=== PATIENT | female | born 1985 | race Caucasian/White ===

== ENCOUNTER 2019-07-19 10:52 | Emergency (ER) | payer OTHER ==
[~2019-07-19] VITALS: Ht 160 cm; Wt 86.2 kg
[~2019-07-19 10:52] MED LIST: CYCL10TA2 PO; DULO60CA45 PO; HYDR-2765 PO; NAPR-683 PO; RANI150T2 PO; pro air
[2019-07-19 11:00] VITALS: BP 142/65
--- NOTE | 2019-07-19 11:16 | PHYS DOC ---
Past Medical History Attending Signature I have participated in the care of this patient and I have reviewed and agree with all pertinent clinical information above including history, exam, and recommendations. (BRYSON PATEL MD) Adult General Chief Complaint Chief Complaint: BACK PAIN - NO INJURY HPI HPI Patient is a 33 year old female who presents to the ED today complaining of c hronic 6 out of 10 left low back pain radiating to the left lower extremity. Patient states she ran out of her hydrocodone. She states she used to get 240 tablets of hydrocodone per month but her PCP cut her down to 120 tablets this month and now she is out. She states her PCP requested her to follow-up with the pain clinic and has an appointment in 1 month. She states she has an MRI of her lumbar spine scheduled for tomorrow. She is requesting a refill of hydrocodone. Denies any injury. Denies any loss of bowel/bladder function. (DAWNA AVINA APRN) Review of Systems Review of Systems Constitutional: Denies fever or chills [] GI: Denies abdominal pain, nausea, vomiting, bloody stools or diarrhea [] : Denies dysuria or hematuria [] Musculoskeletal: Reports left low back pain Integument: Denies rash or skin lesions [] Neurologic: Denies headache, focal weakness or sensory changes [] All other systems were reviewed and found to be within normal limits, except as documented in this note. (DAWNA AVINA APRN) Current Medications Current Medications Current Medications Medications (Trade) Dose Ordered Sig/Marizol Start Time Stop Time Status Last Admin Dose Admin Acetaminophen/ Hydrocodone Bitart (Lortab 5/325) 2 tab 1X ONCE 07/19/19 11:30 07/19/19 11:25 DC 07/19/19 11:22 2 TAB (BRYSON PATEL MD) Allergies Allergies Allergies Coded Allergies Type Severity Reaction Last Updated Verified Penicillins Allergy Intermediate hives,rash 02/05/14 No (BRYSON PATEL MD) Physical Exam Physical Exam Constitutional: Well developed, well nourished, no acute distress, non-toxic appearance. [] Abdomen: Bowel sounds normal, soft, no tenderness, no masses, no pulsatile masses. [] Skin: Warm, dry, no erythema, no rash. [] Back: Diffuse paraspinal muscle tenderness to the left lumbar spine, no midline lumbar spine tenderness, no CVA tenderness. [] Extremities: No tenderness, no cyanosis, no clubbing, ROM intact, no edema. [] Neurologic: Alert and oriented X 3, normal motor function, normal sensory function, no focal deficits noted. [] Psychologic: Affect normal, judgement normal, mood normal. [] (DAWNA AVINA APRN) Current Patient Data Vital Signs Vital Signs Date Time Temp Pulse Resp B/P (MAP) Pulse Ox O2 Delivery O2 Flow Rate FiO2 07/19/19 11:22 14 99 Room Air 07/19/19 11:00 97.8 93 142/65 (90) 97.8 (BRYSON PATEL MD) EKG EKG [] (DAWNA AVINA APRN) Radiology/Procedures Radiology/Procedures [] (DAWNA AVINA APRN) Course & Med Decision Making Course & Med Decision Making Pertinent Labs and Imaging studies reviewed. (See chart for details) This is a 33-year-old female patient with history of chronic back pain presenting to the ED today with complaints of chronic back pain and running out of her hydrocodone. She is requesting a refill of hydrocodone. See history of present illness. K tracs shows patient received 120 tablets of hydrocodone on July 01 [address] Lott as a 1 month supply. Patient insisting of getting refill of [place]/short supply. Informed her, her PCP seem to want to decrease her narcotic dependence and could be the reason he is cutting her Hydrocodone done hence i will not refill her [place] today plus we have a narcotic/drug epidemic we working with the government to fight the epidemic. I offered her a dose in the ed and discharged her to home with instructions to follow up with her PCP and pain clinic as soon as possible. (DAWNA AVINA APRN) Dragon Disclaimer Dragon Disclaimer This electronic medical record was generated, in whole or in part, using a voice recognition dictation system. (DAWNA AVINA APRN) Departure Departure Impression: Primary Impression: Chronic low back pain Additional Impression: Narcotic dependence Disposition: HOME, SELF-CARE Condition: STABLE Referrals: MARY LOTT MD (PCP) follow up as soon as possible NUPUR VILLEGAS MD follow up as soon as possible Patient Instructions: Back Pain, Adult, [id number] Additional Instructions: You were evaluated in the emergency room for chronic low back pain. Please follow-up with the pain clinic as well as a primary care doctor. Problem Qualifiers Primary Impression: Chronic low back pain Back pain laterality: left Sciatica presence: with sciatica Sciatica laterality: sciatica of left side Qualified Codes: M54.42 - Lumbago with sciatica, left side; G89.29 - Other chronic pain DAWNA AVINA APRN Jul 19, 2019 11:15 BRYSON PATEL MD Jul 19, 2019 17:16
[2019-07-19] MEDS ORDERED: HYDROcodone/APAP 5/325MG 1 TAB TABLET PO ONE (11:30)
== END 2019-07-19 11:20 | disposition home or self-care (01) ==
LOC: ER 10:52
DX: M54.42 Lumbago with sciatica, left side (principal); G89.29 Other chronic pain; F11.20 Opioid dependence, uncomplicated; Z88.0 Allergy status to penicillin
CPT/HCPCS: 99282

== ENCOUNTER → 2019-07-20 | Outpatient (CLI) | payer OTHER ==
[2019-07-19 11:00] VITALS: BP 142/65
--- NOTE | 2019-07-20 10:51 | RAD ---
MRI Lumbar Spine without contrast History: Spinal stenosis Technique: Multiplanar, multi sequential noncontrast MR imaging was performed of the lumbar spine. Comparison: December 09, 2014 Findings: Lumbar vertebral body stature is maintained. There is again mild to moderate L5-S1 degenerative disc disease, to lesser degree at L4-5. There is posterior annular tear L4-5. There is increased L5-S1 endplate edema likely reactive/degenerative in etiology. AP alignment is similar, within normal limits. Conus terminates near the inferior aspect of L1. L1-2, L2-3: These levels were not included on the axial images. Neural foramina and spinal canal are adequate. L3-L4: Spinal canal and neural foramina are adequate. L4-L5: There is negligible disc osteophyte complex and bulge as seen previously, spinal canal and neural foramina overall adequate. L5-S1: There is again disc osteophyte complex, superimposed protrusion eccentric to the far left lateral recess about 3 to 4 mm AP, contact of the descending left S1 nerve root in the far lateral recess as seen previously. There is again [id number] narrowing of the far left lateral recess at location descending left S1 nerve root, posterior narrowing by facet. There is minimal narrowing of the inferior left neural foramen, right neural foramen adequate. Impression: 1. There is again narrowing of the far left lateral recess at L5-S1 in part by protrusion contacting the descending left S1 nerve root in the far left lateral recess. There is again degenerative disc disease greatest at L5-S1, increased endplate edema at this level likely reactive/degenerative in etiology. There is similar L4-5 degenerative disc disease. Electronically signed by: Camilo Quinonez MD (07/20/2019 10:48 AM) [id number]
== END | disposition home or self-care (01) ==
LOC: MRI 09:23
PROVIDERS: ATTEND Family Medicine
DX: M51.37 Other intervertebral disc degeneration, lumbosacral region (principal); M48.07 Spinal stenosis, lumbosacral region; M51.27 Other intervertebral disc displacement, lumbosacral region; M25.78 Osteophyte, vertebrae
CPT/HCPCS: 72148